=== PATIENT | female | born 1985 | race Caucasian/White ===

== ENCOUNTER 2017-02-21 19:22 | Outpatient (CLI) | payer SELFPAY ==
[~2017-02-21] VITALS: Ht 162.6 cm; Wt 62.6 kg
[2017-02-21 19:29] VITALS: Ht 162.6 cm; Wt 62.6 kg
[2017-02-21 19:54] VITALS: BP 112/58; PULSE 74; RESP 18
--- NOTE | 2017-02-21 20:13 | RADRPT ---
PROCEDURE: US biophysical profile. CLINICAL INDICATION: Trauma due to a fall. Decreased motion. TECHNIQUE: Multiple sonographic images of the uterus were obtained. The images were revi ewed on a PACS workstation. COMPARISON: No prior studies are available for comparison. FINDINGS: There is a single live intrauterine gestation. heart rate is 139 beats per minute. The position is cephalic. The placenta is posterior grade II with no abruption or previa. The MAGNO is 11.3 cm. (Normal = 5-20 cm.) Breathing Movement: 2 Gross Body Movement: 2 Tone: 2 Qualitative Amniotic Fluid Volume: 2 TOTAL: 8 IMPRESSION: 1. The biophysical score is 8/8. RPTAT: QQ .Rob Vasquez MD, Date Time Electronically viewed and signed by .Rob Vasquez MD, on 02/21/2017 20:12 .R/
--- NOTE | 2017-02-21 20:48 | TRIAGE ---
OB Triage Datetime Report Generated by CPN: 02/21/2017 20:47 Datetime: 02/21/2017 20:25 Stage of : OB Triage Temperature Route: Oral Labor Evaluation Frequency: 0 Monitor Mode: External Pattern: Normal: <= 5 Contractions in 10 Minutes Resting Tone Lyndon: Relaxed Heart Rate FHR Baseline Rate: 140 Monitor Mode: External US Variability: Moderate 6-25 bpm Accelerations: 15X15 Decelerations: None Category: Category I Datetime: 02/21/2017 19:40 Assessment Type: Triage Maternal Assessment Level of Consciousness: Fully Conscious DTR's/Clonus: DTRs 2+; No Clonus Headache: Denies Blurred Vision: No Respiratory Effort: Unlabored; Regular Rhythm; Equal Expansion Breath Sounds, Left: Clear and Equal Breath Sounds, Right: Clear and Equal Nausea/Vomiting: Denies RUQ Epigastric Pain: Denies Lower Extremities Edema: None Upper Extremities Edema: None Facial Edema: None Fall Risk Assessment History of Falling: (0) No Secondary Diagnosis: (0) No Ambulatory Aid: (0) Bedrest/Nurse Assist IV Therapy: (0) No Gait: (0) Normal/Bedrest/Immobile Mental Status: (0) Oriented to Own Ability Fall Score: 0 Fall Risk Score Definition: No Risk: No action required Datetime: 02/21/2017 19:32 Time of Arrival: 02/21/2017 19:17 EGA: 30.2 Chief Complaint: FAII AT 1845 IN STORE, DID NOT HIT ABDOMEN, TOOK FALL ON KNEES Movement: Present Rupture of Membranes: Denies Vaginal Discharge: Denies Abdominal Trauma: Fall Additional Patient Complaints: PER PT. SHE IS O+ BLOOD TYPE Time Provider Notified: 02/21/2017 19:50 Provider Notified: DR MILLER Initial Plan: EFM, BPP, CALL MD FOR ORDERS
--- NOTE | 2017-02-21 20:52 | PN ---
Triage Information Date/Time 02/21/17 Reason for visit: fell on knees and hands no Weeks of Gestation 30w2d /Para A1(iab) Diabetes: none Hypertention: none Objective Vital Signs Date Time Temp Pulse Resp B/P Pulse Ox O2 Delivery O2 Flow Rate FiO2 02/21/17 19:54 98.1 74 18 112/58 100 Room Air Heart Rate: 140's Heart Rate Comments cat 1 tracing no UC Contractions: None Exam Rt knee erythematous no LOM abdomen soft no tenderness Results/Medications Imaging Results BPP 88 no abruptio or previa Disposition: Discharge Assessment/Plan IUP 30w2d S/P fall Plan RTH prn with routine labor instructions otherwise f/u at her OB office TOLU MILLER MD Feb 21, 2017 20:49
== END 2017-02-21 20:33 | disposition home or self-care (01) ==
LOC: OBT 19:22 → L-D 19:23 → OBT 20:33
PROVIDERS: ATTEND Obstetrics & Gynecology
DX: O26.893 Other specified pregnancy related conditions, third trimester (principal); Z04.3 Encounter for examination and observation following other accident; Z3A.30 30 weeks gestation of pregnancy
CPT/HCPCS: 76818; G0463